=== PATIENT | male | born 1995 | race Caucasian/White ===

== ENCOUNTER 2019-03-18 10:45 | Emergency (ER) | payer OTHER ==
[2019-03-18] MEDS ORDERED: IBUPROFEN 800 MG TABLET PO STA (12:01)
[2019-03-18] MEDS ORDERED: AMOX/CLAV 875 MG/125 MG TABLET PO STA (12:02)
[2019-03-18 12:32] VITALS: BP 111/68
--- NOTE | 2019-03-18 12:44 | ED Physician Documentation ---
History of Present Illness - Stated complaint Stated Complaint: R HAND INJ - Chief complaint Chief Complaint: Trauma Ext - History obtained from History obtained from: Patient - History of Present Illness Timing: Today Pain level max: 5 Pain level now: 4 - Additonal information Additional information: 23-year-old male states that his cat was getting into a fight with a dog, he picked up the cat and has scratches and bites to his bilateral hands. Tetanus is up-to-date. Worse with movement and better with rest. Review of Systems Constitutional: denies: Fever, Chills GI: denies: Vomiting, Diarrhea Skin: denies: Rash Musculoskeletal: denies: Neck pain, Back pain Neurologic: denies: Headache PD PAST MEDICAL HISTORY - Past Medical History Cardiovascular: None Respiratory: None Neuro: Head injury, Other Endocrine/Autoimmune: None GI: None : None HEENT: None Psych: Depression Musculoskeletal: None Derm: None Other Past Medical History: Ruptured spleen Head injury - concussion at age 14 - Past Surgical History Past Surgical History: No - Present Medications Home Medications: Ambulatory Orders Medication Instructions Recorded Confirmed Amox/Clav 875/125 [Augmentin] 1 each PO Q12H #20 tablet 03/18/19 Ibuprofen [Motrin] 800 mg PO Q8H PRN #30 tablet 03/18/19 - Allergies Allergies/Adverse Reactions: Allergies Allergy/AdvReac Type Severity Reaction Status Date / Time No Known Drug Allergies Allergy Verified 03/18/19 11:02 - Social History Does the pt smoke?: No Smoking Status: Never smoker Does the pt drink ETOH?: Yes ETOH Use: Wine, Beer Substance Use and Type: Marijuana - Immunizations Immunizations are current?: No Immunizations: TDAP current <10years PD ED PE NORMAL - Vitals Vital signs reviewed: Yes - General General: Alert and oriented X 3, No acute distress - HEENT HEENT: Moist mucous membranes - Neck Neck: Supple, no meningeal sign - Derm Derm: Warm and dry - Extremities Extremities: Other (Bilateral hands reveal small puncture wounds and scratches. None are deep or require repair. Neurovascular intact, full range of motion throughout the hands, wrists bilaterally) - Neuro Neuro: Alert and oriented X 3 - Psych Psych: Normal mood, Normal affect Results - Vitals Vitals: Vital Signs - 24 hr 03/18/19 03/18/19 11:02 12:31 Temperature 37.2 C 36.5 C Heart Rate 68 65 Respiratory 14 14 Rate Blood Pressure 121/73 111/68 O2 Saturation 98 98 Oxygen O2 Source Room air PD MEDICAL DECISION MAKING - ED course Complexity details: considered differential, d/w patient ED course: We will place on Augmentin. Wounds were cleansed and bandaged. Warnings of infection and instructions on wound care given at bedside. Also counseled on how to minimize scarring. Patient counseled regarding signs and symptoms for which I believe and urgent re-evaluation would be necessary. Patient with good understanding of and agreement to plan and is comfortable going home at this time This document was made in part using voice recognition software. While efforts are made to proofread this document, sound alike and grammatical errors may occur. Departure - Departure Disposition: 01 Home, Self Care Clinical Impression: Cat bite Qualifiers: Encounter type: initial encounter Qualified Code(s): W55.01XA - Bitten by cat, initial encounter Condition: Good Instructions: ED Bite Cat Follow-Up: your,doctor in 1 week for wound check [Other] Prescriptions: Amox/Clav 875/125 [Augmentin] 1 each PO Q12H #20 tablet Ibuprofen [Motrin] 800 mg PO Q8H PRN #30 tablet PRN Reason: PAIN &/OR FEVER Comments: Take all antibiotics until gone. Return if you worsen. Follow-up with your doctor for further care. You should have a wound check within 3 to 4 days with your doctor. Discharge Date/Time: 03/18/19 12:51
== END 2019-03-18 12:51 | disposition home or self-care (01) ==
LOC: ED 10:45
DX: S60.512A Abrasion of left hand, initial encounter (principal); S60.511A Abrasion of right hand, initial encounter; S61.452A Open bite of left hand, initial encounter; S61.451A Open bite of right hand, initial encounter; W55.01XA Bitten by cat, initial encounter; W55.03XA Scratched by cat, initial encounter; Y93.89 Activity, other specified
CPT/HCPCS: 99282; 99284; A9270

== ENCOUNTER 2019-12-19 19:48 | Outpatient (CLI) | payer OTHER | END 2019-12-19 19:49 | disposition home or self-care (01) | LOC: COV 19:48 | PROVIDERS: ATTEND Family Medicine | DX: Z20.828 Contact with and (suspected) exposure to other viral communicable diseases (principal) ==